=== PATIENT | male | born 1965 | race Two or more races ===

== ENCOUNTER 2022-11-12 20:19 | Emergency (ER) | payer SELFPAY ==
[~2022-11-12] VITALS: Ht 162.6 cm; Wt 70.9 kg
[2022-11-12 21:27] LABS: Urine Bacteria NONE SEEN /hpf (None Seen); Urine Blood Negative /uL (Negative); Urine Specific Gravity 1.016 (1.001-1.035); Urine WBC <1 /hpf (0 - 3)
[2022-11-12 22:15] LABS: Basophils # (auto) 0 10 ^3/uL (0-0.2); Basophils % (auto) 0.2 % (0.0-2.0); Eosinophils # (auto) 0.1 10 ^3/uL (0-0.8); Eosinophils % (auto) 1.1 % (0.0-7.0); Hematocrit 42.2 % (41.0-53.0); Hemoglobin 14.1 g/dL (13.5-17.5); Lymphocytes # (auto) 3.7 10 ^3/uL (0.4-5.4); Lymphocytes % (auto) 45.2 % (10.0-50.0); Mean Corpuscular Hemoglobin 29.1 pg (28.0-32.0); Mean Corpuscular Hgb Conc. 33.5 g/dL (32.0-36.0); Mean Corpuscular Volume 86.9 fL (80.0-100.0); Monocytes # (auto) 0.7 10 ^3/uL (0-1.3); Monocytes % (auto) 8.5 % (0.0-12.0); Neutrophils # (auto) 3.7 10 ^3/uL (1.6-8.6); Nucleated Red Blood Cells % 0.1 %; Red Blood Cells 4.86 10^6/uL (4.5-5.90); Red Cell Distribution Width 14.1 % (11.8-14.3); White Blood Cell 8.3 10^3/uL (4.4-10.8)
[2022-11-12 22:31] LABS: Albumin 3.7 g/dL (3.4-5.0); Calcium 9.2 mg/dL (8.5-10.1); Potassium 3.7 mmol/L (3.5-5.1)
[2022-11-12 22:36] LABS: BUN/Creatinine Ratio 14.9 (10.0-20.0); Bilirubin, Total 0.2 mg/dL (0.2-1.0); Total Protein 7.6 g/dL (6.4-8.2)
[2022-11-13] MEDS ORDERED: TAM04C PO (05:04)
[2022-11-13] MEDS ORDERED: ONDA-144 PO (05:04)
[2022-11-13] MEDS ORDERED: PERCOT PO (05:04)
[2022-11-13 05:45] VITALS: BP 145/90
== END 2022-11-13 05:50 | disposition home or self-care (01) ==
LOC: ER 20:19
DX: N20.0 Calculus of kidney (principal); E11.9 Type 2 diabetes mellitus without complications
CPT/HCPCS: 36415; 71045; 74176; 80053; 81001; 83690; 84484; 85025; 93005

== ENCOUNTER 2023-02-13 10:47 | Emergency (ER) | payer SELFPAY ==
[~2023-02-13] VITALS: Ht 160 cm; Wt 70.3 kg
[~2023-02-13 10:47] MED LIST: ONDA-144 PO; PERCOT PO; TAMS-35 PO
[2023-02-13] MEDS ORDERED: SODIUM CHLORIDE 0.9% 1,000 ML IVB ONE (11:30)
[2023-02-13] MEDS ORDERED: MORPHINE SULFATE 4 MG/ML SYR/VIAL IV ONE (11:30)
[2023-02-13] MEDS ORDERED: ONDANSETRON HCL 4 MG/2 ML VIAL IV ONE (11:30)
[2023-02-13 12:05] LABS: Basophils # (auto) 0 10 ^3/uL (0-0.2); Basophils % (auto) 0.2 % (0.0-2.0); Eosinophils # (auto) 0 10 ^3/uL (0-0.8); Eosinophils % (auto) 0.5 % (0.0-7.0); Hematocrit 42.7 % (41.0-53.0); Hemoglobin 13.9 g/dL (13.5-17.5); Lymphocytes # (auto) 3.7 10 ^3/uL (0.4-5.4); Lymphocytes % (auto) 37.3 % (10.0-50.0); Mean Corpuscular Hemoglobin 28.2 pg (28.0-32.0); Mean Corpuscular Hgb Conc. 32.7 g/dL (32.0-36.0); Mean Corpuscular Volume 86.4 fL (80.0-100.0); Monocytes # (auto) 0.7 10 ^3/uL (0-1.3); Monocytes % (auto) 6.8 % (0.0-12.0); Neutrophils # (auto) 5.4 10 ^3/uL (1.6-8.6); Neutrophils % (auto) 55.2 % (37.0-80.0); Nucleated Red Blood Cells % 0.2 %; Red Blood Cells 4.94 10^6/uL (4.5-5.90); Red Cell Distribution Width 14.1 % (11.8-14.3); White Blood Cell 9.8 10^3/uL (4.4-10.8)
[2023-02-13 12:15] LABS: Calcium 8.8 mg/dL (8.5-10.1); Potassium 3.2 mmol/L (3.5-5.1)
[2023-02-13 12:21] LABS: BUN/Creatinine Ratio 21.4 (10.0-20.0); Bilirubin, Total 0.4 mg/dL (0.2-1.0)
[2023-02-13 12:41] LABS: Urine Bacteria NONE SEEN /hpf (None Seen); Urine Blood Negative /uL (Negative); Urine Clarity Clear (Clear); Urine Color Yellow (Yellow); Urine Mucus FEW (None Seen); Urine Protein, UAD TRACE (Negative); Urine Specific Gravity 1.028 (1.001-1.035); Urine Urobilinogen Normal (Negative); Urine WBC 1 /hpf (0 - 3)
[2023-02-13] MEDS ORDERED: ZOFR4T PO (13:15)
[2023-02-13] MEDS ORDERED: HYDR-4902 PO (13:15)
[2023-02-13] MEDS ORDERED: TAMS-35 PO (13:15)
[2023-02-13 16:18] VITALS: BP 124/74; PULSE 74; RESP 19; TEMP 98.2; O2SAT 97
== END 2023-02-13 16:21 | disposition home or self-care (01) ==
LOC: ER 10:47
DX: N20.0 Calculus of kidney (principal); I10 Essential (primary) hypertension; Z79.1 Long term (current) use of non-steroidal anti-inflammatories (NSAID); Z79.899 Other long term (current) drug therapy
CPT/HCPCS: 36415; 74176; 80053; 81001; 85025; 96361; 96374; 96375; 99285; J2270; J2405; J7030

== ENCOUNTER 2023-04-25 12:58 | Emergency (ER) | payer MEDICAID, OTHER ==
[~2023-04-25] VITALS: Ht 165.1 cm; Wt 71.0 kg
[~2023-04-25 12:58] MED LIST changes: +HYDR-4902 PO; +ZOFR4T PO
[2023-04-25 13:49] VITALS: BP 147/77; PULSE 80; RESP 18; TEMP 98.6; O2SAT 98
[2023-04-25 14:19] LABS: Urine Bacteria FEW /hpf (None Seen); Urine Blood Negative /uL (Negative); Urine Clarity Clear (Clear); Urine Color Colorless (Yellow); Urine Protein, UAD Negative (Negative); Urine Specific Gravity 1.019 (1.001-1.035); Urine Urobilinogen Normal (Negative); Urine WBC <1 /hpf (0 - 3)
[2023-04-25] MEDS ORDERED: KETOROLAC TROMETH 60MG/2ML VIAL IM ONE (14:30)
[2023-04-25] MEDS ORDERED: TRAM50TA2 PO ×2 (15:12)
[2023-04-25] MEDS ORDERED: PRED20TA2 PO (15:12)
[2023-04-25] MEDS ORDERED: PERCOT PO (15:20)
== END 2023-04-25 15:19 | disposition home or self-care (01) ==
LOC: ER 12:58
DX: M51.16 Intervertebral disc disorders with radiculopathy, lumbar region (principal); I10 Essential (primary) hypertension; Z87.442 Personal history of urinary calculi
CPT/HCPCS: 72100; 81001; 96372; 99284; J1885